=== PATIENT | female | born 1955 | race Caucasian/White ===

== ENCOUNTER 2017-07-26 12:56 | Emergency (ER) | payer BC ==
[~2017-07-26] VITALS: Ht 174 cm; Wt 76.8 kg
[2017-07-26 13:02] VITALS: BP 19/84
[2017-07-26] MEDS ORDERED: LIDOCAINE 1%, 20ML INFIL ONE (13:30)
[2017-07-26] MEDS ORDERED: DIPH,PERTUSS(ACELL),TET VAC/PF 0.5 ML IM-VACC ONE ×2 (13:30→13:33)
[2017-07-26] MEDS ORDERED: LIDOCAINE 1%, 20ML ONE (13:33)
[2017-07-26] MEDS ORDERED: BACITRACIN ZINC OINT 500U/GM, 0.9 GM ONE (14:11)
== END 2017-07-26 14:57 | disposition home or self-care (01) ==
LOC: ED 13:36
DX: S61.432A Puncture wound without foreign body of left hand, initial encounter (principal); W26.0XXA Contact with knife, initial encounter; Y93.89 Activity, other specified; Y99.8 Other external cause status; Y92.009 Unspecified place in unspecified non-institutional (private) residence as the place of occurrence of the external cause
CPT/HCPCS: 90471; 90715